=== PATIENT | male | born 1970 | race Caucasian/White ===

== ENCOUNTER → 2016-12-15 | Outpatient (CLI) | payer OTHER ==
[~2016-12-15] MED LIST: CATHETER FLUSH 10 ML SYR IV PRN; CIPR-17 PO; IOHEXOL 350 MG/ML 150 ML (OMNIPAQUE 350) VIAL IV ONE; METR500T PO; NF-ESOM40C PO; NS 100 ML (IVPB) BAG IV ONE
--- NOTE | 2016-12-15 13:38 | Diagnostic Imaging Report ---
PROCEDURE: CT angiography of the chest with contrast. TECHNIQUE: Multiple contiguous axial images were obtained through the chest after uneventful bolus administration of intravenous contrast. Reconstructed CTA MIP acquisitions were also performed. INDICATION: Acute chest pain. 125 mL of Omnipaque 350 administered intravenously. FINDINGS: The thoracic aorta is normal in caliber. No dissection or aneurysm is seen. The brachiocephalic, the right subclavian, and the visualized portion of the right common carotid arteries are normal. The origin of the left common carotid artery is obscured by the dense incoming contrast in the adjacent left brachiocephalic vein and cannot be evaluated on this exam. The left subclavian artery proximal and mid segments are well visualized and appear normal. The pulmonary arteries are well opacified and demonstrate no filling defects to suggest pulmonary embolism. The heart size is normal. No pericardial or pleural effusion. There is no mediastinal mass. No mediastinal or hilar lymphadenopathy is seen. No axillary lymphadenopathy is noted. The lungs demonstrate minimal centrilobular emphysema changes in the right lung apex. Minimal patchy groundglass opacity in the right upper lobe is seen. No prior studies available for comparison. This could relate to mild nonspecific pneumonitis or atelectasis. Sections of the upper abdomen demonstrate prominent degree of hepatic steatosis in a diffuse fashion. The osseous structures demonstrate minimal anterior osteophytes in the upper and mid thoracic spine. IMPRESSION: 1. No PE or aortic dissection. 2. Minimal emphysema change in the right lung apex. 3. Minimal patchy groundglass opacity in the right lung apex could relate to nonspecific pneumonitis or atelectasis, of questionable clinical significance. 4. Diffuse hepatic steatosis. Dictated by: Dictated on workstation # [id number]
== END ==
LOC: RAD 11:40
PROVIDERS: ATTEND Internal Medicine
DX: R07.9 Chest pain, unspecified (principal); K76.0 Fatty (change of) liver, not elsewhere classified
CPT/HCPCS: 71275

== ENCOUNTER 2016-12-20 05:39 | Outpatient (CLI) | payer OTHER ==
[~2016-12-20] VITALS: Ht 175.3 cm; Wt 90.7 kg
[~2016-12-20 05:39] MED LIST changes: -CATHETER FLUSH 10 ML SYR IV PRN; -IOHEXOL 350 MG/ML 150 ML (OMNIPAQUE 350) VIAL IV ONE; -NS 100 ML (IVPB) BAG IV ONE
== END 2016-12-20 14:28 ==
LOC: PREOP 05:39
PROVIDERS: ATTEND Internal Medicine
DX: Z01.818 Encounter for other preprocedural examination (principal); K22.70 Barrett's esophagus without dysplasia

== ENCOUNTER 2016-12-22 08:00 | Day surgery (SDC) | payer OTHER ==
[2016-12-22 08:15] VITALS: BP 117/88
--- NOTE | 2016-12-22 08:18 | HISTORY AND PHYSICAL ---
DICTATING PHYSICIAN: Dr. Bowden DATE OF ADMISSION: 12/22/2016 Dr. Rome is a 46-year-old white male referred for EGD for surveillance purposes due to a reported past history of short segment Juarez's esophagus. He has been having lower precordial chest discomfort and epigastric discomfort. It was worse about a week ago. He underwent CT angio of the chest that did not reveal evidence for aortic aneurysm or pulmonary embolism. He did have some right upper lobe mild emphysematous change localized with some atelectasis. This was not, however where his chest discomfort was. He had no evidence for adenopathy or overt evidence for pneumonia. He did not have any significant associated cough, chills or fever. I had previously performed an EGD on him in 2011. He had antral gastritis at that time and was Helicobacter positive and underwent eradication. He had nonerosive esophagitis changes with a small sliding hiatal hernia. He subsequently underwent EGD at [facility] several years later, and apparently did have evidence for Juarez's change. Considering unexplained chest pain and a past history of Juarez's he is referred for EGD on the 22 of December. PAST MEDICAL HISTORY: 1. He underwent cardiac catheterization in May [address] Vines who noted normal coronary arteries; it was done for chest pain at that time was suspicious for angina. 2. He has intermittent intestinal symptoms with intermittent cramping and diarrhea compatible with IBS. 3. He has had a previous colonoscopy did not reveal evidence for diverticular disease. 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 He has a history of social alcohol intake. He is a former smoker who quit over 1 year ago. PHYSICAL EXAMINATION: Physical examination reveals a white male, appears to be in no acute distress. CHEST: Clear. CV: Reveals a regular rate and rhythm without murmur, S3 or S4. ABDOMEN: Soft, supple without masses, organomegaly or tenderness. EXTREMITIES: Reveal no cyanosis, clubbing, or edema. ASSESSMENT: The patient was set-up for surveillance EGD due to a past history of Juarez's and recent history of epigastric as well as lower precordial chest discomfort. Job ID: [id number] Dictated Date: 12/21/2016 20:39:17 Mechanical Planner Date: 12/22/2016 08:10:16/dave SAMPSON
[2016-12-22] MEDS ORDERED: D5 LR IV SOLUTION 1,000 ML IV ONE (08:24)
[2016-12-22] MEDS ORDERED: D5 LR IV SOLUTION 1,000 ML IV STA (08:25)
[2016-12-22] MEDS ORDERED: HURRICAINE EXT TUBE (BENZOCAINE) XX PRN (08:30)
[2016-12-22] MEDS ORDERED: LIDOCAINE JELLY 2% (XYLOCAINE) 5 ML TUBE MM PRN (08:30)
[2016-12-22] MEDS ORDERED: FLUMAZENIL (ROMAZICON) 0.1 MG/ML 5 ML VIAL INJ PRN (08:30)
[2016-12-22] MEDS ORDERED: NALOXONE 0.4 MG/ML 1 ML (NARCAN) VIAL IVP PRN (08:30)
[2016-12-22] MEDS ORDERED: LIDOCAINE JELLY 2% (XYLOCAINE) 5 ML TUBE ONE (08:45)
[2016-12-22] MEDS ORDERED: MIDAZOLAM 2 MG/2 ML (VERSED) VIAL ONE ×4 (08:45)
[2016-12-22] MEDS ORDERED: fentaNYL INJECTION 100 MCG/2 ML AMP ONE (08:45)
[2016-12-22] MEDS ORDERED: HURRICAINE EXT TUBE (BENZOCAINE) ONE (08:45)
--- NOTE | 2016-12-22 08:49 | Pre-Op Note & Conscious Sedat ---
Pre-Operative Progress Note H&P Reviewed The H&P was reviewed, patient examined and no changes noted. Date H&P Reviewed: Dec 22, 2016 Time H&P Reviewed: 08:48 Conscious Sedation Pre-Proced ASA Class: 1 Airway Mallampati Classification: (koi appropriate class) I. II. III, IV Lungs Heart ASA score ASA 1: a normal healthy patient ASA 2: a patient with a mild systemic disease (mid diabetes, controlled hypertension, obesity ASA 3: a patient with a severe systemic disease that limits activity (angina , COPD, prior Myocardial infarction) ASA 4: a patient with an incapacitating disease that is a constant threat to life (CHF, renal failure) ASA 5: a moribund patient not expected to survive 24 hrs. (ruptured aneurysm) ASA 6: a declared brain patient whose organs are being harvested. For emergent operations, add the letter E after the classification Grade 2 Sedation Plan: Analgesia, Amnesia, Plan communicated to team members, Discussed options with patient/fam, Discussed risks with patient/fam Note The patient is an appropriate candidate to undergo the planned procedure, sedation, and anesthesia. The patient immediately re-assessed prior to indication. ELIER SOLIS MD Dec 22, 2016 08:49
[2016-12-22] MEDS: fentaNYL INJECTION 100 MCG/2 ML AMP IVP PRN ×2 (08:58→09:00)
[2016-12-22] MEDS: MIDAZOLAM 2 MG/2 ML (VERSED) VIAL IVP PRN ×2 (08:59→09:01)
[2016-12-22 09:35] VITALS: BP 111/80
[2016-12-22 10:15] VITALS: BP 118/95
[2016-12-22 10:30] VITALS: BP 118/95
--- NOTE | 2016-12-25 12:58 | OPERATIVE REPORT ---
PROCEDURE PHYSICIAN: ELIER SOLIS DATE OF PROCEDURE: 12/22/2016 INDICATION FOR THE PROCEDURE: Surveillance due to a past history of Juarez's esophagus with recent history of left precordial chest pain. The patient was placed in the left lateral decubitus position. The endoscope was inserted in the oral cavity and under visualization, the esophagus was intubated. The endoscope was passed down the esophagus, through the stomach, into the second portion of the duodenum. A careful inspection was made as the endoscope was withdrawn. The patient tolerated the procedure well. FINDINGS: The patient did experience obstructive breathing prior to intubation of the esophagus. The posterior hypopharynx, arytenoid aperture, true and false vocal folds were unremarkable. The proximal and midesophagus were unremarkable. The patient did have a small sliding hiatal hernia. There was a little bit of irregularity at the Z line. Photograph was obtained. Four quadrant biopsies were obtained and submitted for histopathology. There was some mild arcuate blood vessel dilatation but no evidence of for erosive esophagitis, rings, webs or stricture formation were identified. The cardia, fundus and antrum of the stomach were unremarkable. As the patient does have a past history of Helicobacter pylori in addition to recurrence, post antibiotic therapy, we did obtain a biopsy from the antrum with submission for Helicobacter. The pylorus, the pyloric channel, the duodenal bulb, and second portion duodenum were unremarkable with normal villous pattern and no evidence for erosions or ulceration. ASSESSMENT: Small sliding hiatal hernia is present, questionable short segment Juarez's. Four quadrant biopsies were obtained and submitted for histopathology. There is no evidence for erosive esophagitis. Two episodes of past H. pylori positivity, biopsy documented, we did obtain a biopsy from the antrum and which was submitted for Helicobacter. If it is positive, we will assume resistance and treat appropriately. The patient did exhibit obstructive breathing under sedation prior to esophageal intubation. He has put on some weight after smoking cessation but did undergo reported home sleep study that did not reveal significant sleep apnea in July 2016. Weight loss strategies were discussed in light of this, as well as the fact that fatty liver changes were noted on recent CT angio of the chest done last week. Nonalcoholic fatty liver disease was discussed as the patient reports that his alcohol intake has been minimal confined to once or twice a week and not excessive. 400 units of vitamin E daily in addition to weight loss was recommended. Sincerely, Job ID: [id number] Dictated Date: 12/22/2016 11:21:50 Market Research Senior Project Manager Date: 12/25/2016 12:50:08 / loraine
== END 2016-12-22 10:30 | disposition home or self-care (01) ==
LOC: ENDO 08:00
PROVIDERS: ATTEND Internal Medicine
DX: K21.0 Gastro-esophageal reflux disease with esophagitis (principal); K44.9 Diaphragmatic hernia without obstruction or gangrene; K29.50 Unspecified chronic gastritis without bleeding; B96.81 Helicobacter pylori [H. pylori] as the cause of diseases classified elsewhere
CPT/HCPCS: 88305

== ENCOUNTER → 2020-10-22 | Outpatient (CLI) | payer OTHER ==
[~2020-10-22] MED LIST changes: +CATHETER FLUSH 10 ML SYR IV PRN
[2020-10-22 09:40] VITALS: BP 120/86
== END ==
LOC: CARD 11:00
PROVIDERS: ATTEND Physician Assistant
DX: R07.9 Chest pain, unspecified (principal)
CPT/HCPCS: 78452; 93017; A9502

== ENCOUNTER → 2021-03-16 | Outpatient (CLI) | payer OTHER ==
[~2021-03-16] MED LIST changes: -CATHETER FLUSH 10 ML SYR IV PRN
--- NOTE | 2021-03-16 12:20 | Diagnostic Imaging Report ---
INDICATION: Left rib injury. TIME OF EXAM: 11:05 a.m. FINDINGS: Multiple views of the left ribs were obtained. There is a nondisplaced fracture involving the left lateral seventh rib. No other rib fractures are seen. No pulmonary contusion, hemothorax or pneumothorax is identified. IMPRESSION: Nondisplaced left lateral seventh rib fracture. Dictated by: Dictated on workstation # [id number]
== END ==
LOC: RAD 10:50
PROVIDERS: ATTEND Physician Assistant
DX: S22.32XA Fracture of one rib, left side, initial encounter for closed fracture (principal); X58.XXXA Exposure to other specified factors, initial encounter
CPT/HCPCS: 71100

== ENCOUNTER → 2021-08-12 | Outpatient (CLI) | payer OTHER ==
--- NOTE | 2021-08-12 11:26 | Diagnostic Imaging Report ---
PROCEDURE: CT chest without contrast. TECHNIQUE: Multiple contiguous axial images were obtained through the chest without the use of intravenous contrast. Auto Exposure Controls were utilized during the CT exam to meet ALARA standards for radiation dose reduction. INDICATION: Shortness of air and worsening right-sided chest pain symptoms 12 hours duration. Compared with study 12/15/2016. FINDINGS: Some mild scarring in the subpleural right upper lobe at the apex laterally this is stable. Lungs otherwise clear. There were no findings of pneumonia. Symmetric air trapping is a stable chronic finding. No lung mass. No evidence for thoracic adenopathy. No effusion, pneumothorax or pneumomediastinum. Thoracic aorta is nonaneurysmal. Vascular patency cannot be addressed owing to the absence of contrast. Heart size and configuration normal. There were no findings of adenopathy within the sienna, mediastinum or axilla. No acute or suspect chest wall pathology. Visualized upper abdomen shows fatty infiltration of the liver and pancreas with no acute appearing upper abdominal lesion. IMPRESSION: Hyperexpanded lungs with some mild subpleural fibrosis in the right apex chronic. No pneumonia, failure, effusion, pneumothorax, mass or acute abnormalities. Dictated by: Dictated on workstation # [id number]
== END ==
LOC: RAD 09:38
PROVIDERS: ATTEND Physician Assistant
DX: J84.10 Pulmonary fibrosis, unspecified (principal)
CPT/HCPCS: 71250

== ENCOUNTER → 2022-10-25 | Outpatient (CLI) | payer OTHER ==
[~2022-10-25] MED LIST changes: +HOLD METFORMIN - RECEIVED CONTRAST 20 ML VIAL IV SCH; +IOHEXOL 350 MG/ML 100 ML (OMNIPAQUE 350) VIAL IV ONE; +NITROGLYCERIN 0.4 MG SL TABS BTL 25'S SL STA; +NS 100 ML (IVPB) BAG IV ONE; +meTOprolol 5 MG/5 ML (LOPRESSOR) VIAL IV PRN
[2022-10-25 13:35] VITALS: BP 130/84
[2022-10-25 13:57] VITALS: BP 120/81
--- NOTE | 2022-10-26 08:55 | Diagnostic Imaging Report ---
EXAMINATION: CTA of the coronary arteries. TECHNIQUE: Contrast enhanced thin section helical images were obtained through the heart and coronary arteries with intravenous contrast timed for the optimal opacification of the coronary arterial structures per gated CTA protocol. Post-processing, reconstructions and interpretation of angiographic images of the vessels was performed. 3D MIP reconstructions were performed and reviewed. All CT scans use one or more of the following dose optimizing techniques: automated exposure control, MA and/or KvP adjustment based on a patient size and exam type, or iterative reconstruction. HISTORY: Chest pain COMPARISON: 08/12/2021 FINDINGS: The left main and circumflex arteries arise from a common ostium. Left anterior descending artery is normal. There is a large first diagonal that is normal. Circumflex artery is normal. There are two large obtuse marginals that are normal. The right coronary artery is normal. The coronary arteries are co-dominant. There is no anomalous coronary artery origin or course. There is no myocardial bridging. There is no ventricular dilation or hypertrophy. Both atria are normal in size. Aorta is normal in caliber. There is no edema or pneumonia. No pleural effusion. No pneumothorax. No suspicious nodules. No pericardial effusion. There is no mediastinal lymphadenopathy. Limited views of the upper abdomen are unremarkable. There are no suspicious osseus lesions. IMPRESSION: 1. Normal coronary arteries. Dictated by: Dictated on workstation # [id number]
== END ==
LOC: RAD 09:33
PROVIDERS: ATTEND Physician Assistant
DX: R07.9 Chest pain, unspecified (principal)
CPT/HCPCS: 75574

== ENCOUNTER → 2022-11-29 | Outpatient (CLI) | payer OTHER ==
[~2022-11-29] MED LIST changes: -HOLD METFORMIN - RECEIVED CONTRAST 20 ML VIAL IV SCH; -IOHEXOL 350 MG/ML 100 ML (OMNIPAQUE 350) VIAL IV ONE; -NITROGLYCERIN 0.4 MG SL TABS BTL 25'S SL STA; -NS 100 ML (IVPB) BAG IV ONE; -meTOprolol 5 MG/5 ML (LOPRESSOR) VIAL IV PRN
--- NOTE | 2022-11-29 16:10 | Diagnostic Imaging Report ---
INDICATION: BILATERAL SHOULDER JOINT PAIN. COMPARISON: None. FINDINGS: Multiple radiographic views of the bilateral shoulders were obtained and show no fractures, dislocations, or other acute bony abnormalities. Joint spaces are well maintained throughout. The soft tissues appear unremarkable. No unexpected radiopaque foreign bodies are identified. IMPRESSION: Unremarkable radiographic exam of the bilateral shoulders. Dictated by: Dictated on workstation # [id number]
== END ==
LOC: ORTHO 10:21
PROVIDERS: ATTEND Orthopaedic Surgery
DX: M25.511 Pain in right shoulder (principal); M25.512 Pain in left shoulder
CPT/HCPCS: 20610; 73030; G0463

== ENCOUNTER 2023-01-24 05:35 | Outpatient (CLI) | payer OTHER ==
[~2023-01-24] VITALS: Ht 175.3 cm; Wt 93.6 kg
[2023-01-25] MEDS ORDERED: CETI10TA17 PO (12:16)
[2023-01-25] MEDS ORDERED: PANT40TA52 PO (12:16)
[2023-01-25] MEDS ORDERED: NEBI5TAB8 PO (12:16)
== END 2023-01-25 12:22 | disposition home or self-care (01) ==
LOC: PREOP 05:35
PROVIDERS: ATTEND Internal Medicine
DX: Z01.818 Encounter for other preprocedural examination (principal)

== ENCOUNTER → 2023-04-04 | Outpatient (CLI) | payer OTHER ==
[~2023-04-04] MED LIST changes: +CETI10TA17 PO; +NEBI5TAB8 PO; +PANT40TA52 PO
--- NOTE | 2023-04-04 11:35 | Diagnostic Imaging Report ---
EXAMINATION: Left hand 3 views HISTORY: Hand pain. COMPARISON: None available. FINDINGS: Alignment is normal. No fracture is seen. Joint spaces are normal. IMPRESSION: 1. No fracture. Dictated by: Dictated on workstation # [id number]
== END ==
LOC: ORTHO 08:18
PROVIDERS: ATTEND Orthopaedic Surgery
DX: M79.642 Pain in left hand (principal)
CPT/HCPCS: 20551; 73130

== ENCOUNTER 2023-05-23 06:04 | Outpatient (CLI) | payer OTHER ==
[~2023-05-23] VITALS: Ht 177.8 cm; Wt 93.6 kg
== END 2023-05-23 10:20 | disposition home or self-care (01) ==
LOC: PREOP 06:04
PROVIDERS: ATTEND Internal Medicine
DX: Z01.818 Encounter for other preprocedural examination (principal)

== ENCOUNTER 2023-05-25 10:08 | Day surgery (SDC) | payer OTHER ==
--- NOTE | 2023-01-19 09:41 | HISTORY AND PHYSICAL ---
PANENDOSCOPY HISTORY AND PHYSICAL HISTORY OF PRESENT ILLNESS: The patient is a 52-year-old white male who has a past history of Juarez's. I last performed upper endoscopy on him 5 years ago, at which time he did not have evidence for Juarez's change on esophageal biopsy. He is undergoing screening colonoscopy, deemed to be of average risk because he is not aware of any family history for GI tract malignancy. For overweight status, he had been on Mounjaro, which was successful for him last year, he lost over 20 pounds. He went off the medication and went back on at the same dose he had finished, 7.5 mg. Resuming that, he reported a lot of diarrhea, so he discontinued the medication. He was able to get coverage for Wegovy. He is on the 0.5 mg dose and will be going up to the 1 mg next. He has not yet noted any weight loss on Wegovy 0.5 mg. He is not having any reported side effects or diarrhea with this medication. He reports he feels more hungry. He denies any significant heartburn symptoms, has had no dysphagia and no melena or bright red blood per rectum. PAST MEDICAL HISTORY: He had cardiac catheterization a number of years ago, for which coronary arteries were clean, done for chest pain. He had more chest pain last year and underwent a cardiac CT, which revealed no evidence for coronary artery disease. 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 FAMILY HISTORY: Father is living at the age of 84 with a history of high blood pressure, diabetes and coronary artery disease. Mother is living at the age of 81 with hypertension and atrial fibrillation with no history of cardiovascular disease. He has 2 siblings, who are alive and well with no reported health problems. 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 History of alcohol consumption in moderation and has 10 plus pack-year smoking history, but quit a little over 8 years ago. MEDICATIONS: Include Wegovy, recently increased to 1 mg subcu weekly, Protonix 40 mg daily, Bystolic 5 mg daily and Zyrtec 10 mg daily. PHYSICAL EXAMINATION: GENERAL: Reveals pleasant white male, in no acute distress. VITAL SIGNS: Weight 206 pounds, BMI 30.5, blood pressure 120/82. HEENT: Unremarkable. Mallampati 2, oropharyngeal configuration. Ear canals clear with normal TMs. Sclerae nonicteric. NECK: Reveals no JVD, adenopathy or bruits. CHEST: Clear to auscultation. CARDIOVASCULAR: Reveals a regular rate and rhythm without murmur, S3, or S4. ABDOMEN: Soft, supple without mass, organomegaly, or tenderness. EXTREMITIES: Reveal no cyanosis, clubbing or edema. SKIN: Evaluation reveals no suspicious nevi. ASSESSMENT AND PLAN: 1. Overweight status. Recent initiation of Wegovy going up to 1 mg, will likely incrementally increase to 2.4 mg considering that there has been no associated weight loss as of yet with Wegovy. 2. History of Juarez's, being set up for diagnostic esophagogastroduodenoscopy as well as screening colonoscopy, deemed to be of average risk for colon cancer as noted above. Prep instructions were given and questions were answered. We will see the patient back for yearly wellness evaluation. The patient had noted some fatigue and wanted to know about whether this could be secondary to low testosterone. Blood tests were obtained, revealing a normal testosterone level of 529, TSH was normal at 0.65, BUN to creatinine ratio is slightly elevated at 27, but GFR is normal at 125, and the remainder of his chemistry panel was normal. Cholesterol was low with a total of 106, HDL 61, LDL 38, and triglyceride level 33. Hemoglobin was slightly decreased at 13.3 with an MCV of 99.5. B12 is pending. Platelet count was normal at 192,000, white count normal at 6400 with a normal differential, and PSA is low at 0.7. Job ID: [id number] DocumentID: [id number] Dictated Date: 01/15/2023 18:39:19 Design Project Manager Date: 01/15/2023 19:38:00 Dictated By: ELIER SOLIS MD [facility]
[~2023-05-25] VITALS: Ht 177 cm; Wt 93.6 kg
[2023-05-25] VITALS (9 sets, daily range): BP systolic 100–130; BP diastolic 68–80
[2023-05-25] MEDS ORDERED: LACTATED RINGERS 1,000 ML 1,000 ML IV STA (10:23)
[2023-05-25] MEDS ORDERED: HURRICAINE EXT TUBE (BENZOCAINE) XX PRN (10:30)
[2023-05-25] MEDS ORDERED: LACTATED RINGERS 1,000 ML 1,000 ML IV ONE (10:31)
[2023-05-25] MEDS ORDERED: HURRICAINE EXT TUBE (BENZOCAINE) ONE (10:31)
--- NOTE | 2023-05-25 10:49 | Pre-Op Note & Conscious Sedat ---
Pre-Operative Progress Note Date H&P Reviewed: May 25, 2023 Time H&P Reviewed: 10:48 History & Physical: H&P Reviewed, Patient Examed, No changes noted Pre-Op Diagnosis: screening colon and barretts surviellance Moderate Sedation PreProcedure ASA Score 1 Airway Lungs Heart ASA score ASA 1: a normal healthy patient ASA 2: a patient with a mild systemic disease (mid diabetes, controlled hypertension, obesity ASA 3: a patient with a severe systemic disease that limits activity (angina, COPD, prior Myocardial infarction) ASA 4: a patient with an incapacitating disease that is a constant threat to life (CHF, renal failure) ASA 5: a moribund patient not expected to survive 24 hrs. (ruptured aneurysm) ASA 6: a declared brain- patient whose organs are being harvested. For emergent operations, add the letter E after the classification Mallampati Classification Grade 2 Sedation Plan Analgesia, Amnesia, Plan communicated to team members, Discussed options with patient/fam, Discussed risks with patient/fam The patient is an appropriate candidate to undergo the planned procedure, sedation, and anesthesia. The patient immediately re-assessed prior to indication. ELIER SOLIS MD May 25, 2023 10:49
[2023-05-25] MEDS ORDERED: MIDAZOLAM INJ 2 MG/2 ML VIAL ONE (12:18)
--- NOTE | 2023-05-25 13:21 | Progress Note-Post Operative ---
Post-Procedure Note Physician (s)/Director Of Special Services (s) Physician ELIER SOLIS MD Pre-Procedure Diagnosis Pre-Procedure Diagnosis: screening colon and barretts surviellance Post-Procedure Diagnosis Post-operative diagnosis: The patient was placed in the left lateral decubitus position. The endoscope inserted into the oral cavity and under direct visualization the esophagus is intubated. The endoscope is passed down the esophagus to stomach and second portion of the duodenum. A careful inspection was made as the endoscope was withdrawn. Findings: The posterior pharynx epiglottis arytenoid aperture and true and false vocal folds were unremarkable to gross inspection. Proximal mid and distal esophagus are unremarkable the Z-line is distinct. There is questionable short segment Juarez's with a small sliding hiatal hernia. Inspection under NBI revealed no abnormalities as well. Biopsies from the GE junction were obtained and submitted for histopathology. The GE junction was noted at 38 cm from the incisor orifice. The cardia fundus antrum pylorus pyloric channel duodenal bulb and second portion of the duodenum were unremarkable to visual inspection. A/P 1. Questionable short segment Juarez's if intestinal metaplasia is noted it is involving at most the distal 2 cm of esophagus. Small sliding hiatal hernia is present. If there is no evidence for intestinal metaplasia we will not be advocating future surveillance EGD. Prior to undergoing colonoscopy digital rectal evaluation was performed. Anal sphincter tone was normal and the perianal reflexes intact. No abnormalities noted on digital inspection anal canal or distal rectal vault. The prostate was unremarkable digital inspection as well. The colonoscope was then inserted into the rectum and under direct visualization advanced to the cecum. The cecum was identified by the indication of the ileocecal valve and the cecal strap. Photographic documentation was obtained. A careful inspection was made as the colonoscope withdrawn. Quality the prep was good. Findings: There are no evidence for internal or external hemorrhoids. The rectum Was unremarkable. Mild diverticular disease confined to the sigmoid colon was present without evidence of diverticulitis. The descending colon splenic flexure transverse colon hepatic flexure ascending colon and cecum were unremarkable. A/P 1. Mild to moderate diverticular disease confined to the sigmoid colon was present without evidence for diverticulitis. This was an otherwise normal colonoscopy to the cecum with no evidence for neoplasia. Would advocate consideration for repeat screening colonoscopy in 10 years. ELIER SOLIS MD May 25, 2023 13:21
--- NOTE | 2023-05-25 14:02 | Anesthesia-General Post-Op ---
MAC Patient Condition Mental Status/LOC: Same as Preop Cardiovascular: Satisfactory Nausea/Vomiting: Absent Respiratory: Satisfactory Pain: Controlled Complications: Absent Post Op Complications Complications None Follow Up Care/Instructions Patient Instructions None needed. Anesthesiology Discharge Order Discharge Order Patient is doing well, no complaints, stable vital signs, no apparent adverse anesthesia problems. No complications reported per nursing. JOAN PARK DO May 25, 2023 14:02
== END 2023-05-25 14:00 | disposition home or self-care (01) ==
LOC: ENDO 10:08
PROVIDERS: ATTEND Internal Medicine
DX: Z12.11 Encounter for screening for malignant neoplasm of colon (principal); K22.70 Barrett's esophagus without dysplasia; E66.3 Overweight; K44.9 Diaphragmatic hernia without obstruction or gangrene; K57.30 Diverticulosis of large intestine without perforation or abscess without bleeding; Z79.899 Other long term (current) drug therapy; Z87.891 Personal history of nicotine dependence